=== PATIENT | female | born 1980 | race Caucasian/White ===

== ENCOUNTER 2020-07-28 16:17 | Outpatient (REF) | payer OTHER, SELFPAY | END 2020-07-28 16:18 | disposition home or self-care (01) | LOC: HO.LAB 16:17 | PROVIDERS: Visit Provider Internal Medicine | DX: Z20.828 Contact with and (suspected) exposure to other viral communicable diseases (principal) | CPT/HCPCS: C9803; U0003 ==

== ENCOUNTER 2022-10-05 15:58 | Emergency (ER) | payer OTHER, SELFPAY ==
--- NOTE | 2022-10-05 15:59 | ED_ITS ---
HPI - Skin/Abscess/Foreign Bdy General Chief complaint: Skin/Abscess/Foreign Body Stated complaint: rash on right arm Time Seen by Provider: 10/05/22 16:00 Source: patient Mode of arrival: ambulatory Limitations: no limitations History of Present Illness HPI narrative: 42 yo female healthy here itching rash to arms, right leg. Patient reports she initially noticed a lesion on her left arm. She was applying some topical hydrocortisone cream which seemed to help the rash. Then she developed lesions on her right lower leg and over her right upper arm. The rash is itchy. There is no associated pain, burning sensation. No flu-like symptoms. Brother lives on a farm and the patient has been staying with him. She is unaware of any tick bites. She does report that he has multiple animals on his farm. Related Data Previous Rx's Medication Instructions Recorded doxycycline monohydrate 100 mg 100 mg PO BID #20 caps 10/05/22 capsule hydrocortisone 2.5 % topical cream 1 appl topical TID PRN rash #30 10/05/22 grams hydroxyzine HCl 25 mg tablet 25 mg PO QID PRN itching #30 tabs 10/05/22 Allergies Allergy/AdvReac Type Severity Reaction Status Date / Time No Known Allergies Allergy Unverified 06/10/20 14:50 Review of Systems Review of Systems: Yes all other systems are reviewed and are negative Constitutional: Constitutional: Reports no additional constitutional complaints, Denies body ache(s), Denies chills, Denies fever(s), Denies headache(s) and Denies weakness Eyes: Eyes: Reports no additional eye complaints and Denies change in vision ENT: Reports system reviewed and no additional complaints, except as documented, Denies dizziness, Denies headache(s), Denies nasal congestion, Denies nasal discharge and Denies neck pain Cardiovascular: Cardiovascular: Reports no additional cardiovascular complaints, Denies chest pain, Denies leg edema and Denies dyspnea Respiratory: Respiratory: Reports no additional respiratory complaints, Denies cough and Denies dyspnea Gastrointestinal: Gastrointestinal: Reports no additional gastrointestinal complaints, Denies abdominal pain, Denies diarrhea, Denies nausea and Denies vomiting Genitourinary: Genitourinary: Reports no additional female genitourinary complaints and Denies urinary incontinence Musculoskeletal: Musculoskeletal: Reports no additional musculoskeletal complaints, Denies back pain, Denies arthralgias, Denies joint swelling, Denies neck pain, Denies numbness and Denies tingling Integumentary/Breasts: Skin/Breast: Reports system reviewed and no additional complaints, except as docu and Reports rash Neurologic: Reports system reviewed and no additional complaints, except as documented, Denies Abnormal speech present, Denies dizziness, Denies headach e(s), Denies numbness, Denies tingling and Denies weakness PMFSH Past Medical History Attestation statement: The following information was validated with the patient. Source: old records reviewed and nursing notes reviewed Social History Social History Advance Directives: No Advance Directives Information Provided: No Physical Exam Vital Signs: Vital Signs: Last Vital Signs Temp 98.0 F 10/05/22 16:00 Pulse 78 10/05/22 16:00 Resp 18 10/05/22 16:00 BP 135/91 H 10/05/22 16:00 Pulse Ox 98 10/05/22 16:00 O2 Del Method 10/05/22 16:00 BMI result Body Mass Index 34.0 Const: General: cooperative, healthy appearing, comfortable and no acute distress Orientation/consciousness: patient oriented x3 Limitations: no limitations HEENT: Head: Yes normal to inspection Ears: hearing grossly normal bilaterally General nose exam: Normal external nose present Face and sinus: Yes normal facial exam Mouth: Normal oral and palatal mucosa present Throat: Yes posterior oropharynx normal Eyes: General: appearance normal, both eyes and all related structures Pupils: Equal, round and reactive pupils present Neck: Neck: Yes normal visual inspection Chest: Chest palpation & inspection: normal inspection of the chest Resp: Effort & Inspection: normal respiratory effort Auscultation: clear to auscultation bilaterally Cardio: Rate: regular rate Rhythm: regular rhythm Peripheral pulses: Peripheral pulses 2+ throughout GI: Inspection: Yes normal to inspection Palpation (GI): Soft to palpation and nontender Auscultation: normal bowel sounds Back/Spine/Pelvis: Thoracic/Lumbar Spine: thoracic and lumbar spine normal to inspection Skin: General skin exam: no rashes or lesions noted Neuro: General: patient oriented x3, no focal motor deficits and normal sensation to monofilament Cranial nerves: Yes Equal, round and reactive pupils present Cognition (Neuro): normal cognition Speech: No Abnormal speech present Gait exam (Neuro): Normal gait present Motor exam (neuro): 5/5 motor strength present throughout Extrem: Other: Over the right upper arm there is a central area of crusting with surrounding erythema which extends from the lateral aspect of the arm to the medial aspect but is not quite circumferential. There is slight warmth. There is no induration or abscess palpated. Over the left forearm there are 2 lesions with similar appearance that are smaller. To the right medial ankle there is another lesion General: Yes normal to ins pection Medical Decision Making Medical Decision Making MDM Narrative: 42 yo female here with itching rash x 1 week. No new medications, detergents, foods, products the patient is aware of. No airway involvement. Does not appear urticarial on exam. The right upper extremity has a larger lesion with surrounding erythema which seems to be extending medially which may be some superimposed cellulitis. Likely atopic dermatitis. Patient however with recent visit to her brother's farm and could consider underlying tick-borne illnesses. No flu-like symptoms suggest. However due to being and make in the area will send panel for Lyme. Patient will be treated with doxycycline for presumed superimposed cellulitis, topical steroids and hydroxyzine for itching. Differential Diagnosis Differential Diagnoses: The differential diagnosis associated with the presentation includes Cellulitis, Lyme disease, atopic dermatitis Discharge Plan Discharge Clinical Impression: Cellulitis, Atopic dermatitis Patient Disposition: Home, Self-Care Instructions: Cellulitis (ED), Dermatitis (ED) Additional Instructions: We sent testing for Lyme disease. We will call you in several days if these results are positive. Take medications as prescribed Return for worsening symptoms Prescriptions: New hydrocortisone 2.5 % cream 1 appl topical TID PRN (Reason: rash) Qty: 30 0RF hydroxyzine HCl 25 mg tablet 25 mg PO QID PRN (Reason: itching) Qty: 30 0RF doxycycline monohydrate 100 mg capsule 100 mg PO BID Qty: 20 0RF Referrals: Physician,None [Primary Care Provider] -
[2022-10-05 16:00] VITALS: BP 135/91; PULSE 78; RESP 18; TEMP 36.7; O2SAT 98; BMI 34.0
[2022-10-09 17:08] LABS: Lyme Abs Screen <0.90 index
== END 2022-10-05 16:23 | disposition home or self-care (01) ==
PROVIDERS: Nurse Practitioner Family; Emergency Provider Student in an Organized Health Care Education/Training Program
DX: L03.113 Cellulitis of right upper limb (principal); L20.9 Atopic dermatitis, unspecified
CPT/HCPCS: 36415; 86617; 86618; 99282; 99283

== ENCOUNTER 2023-05-21 20:49 | Emergency (ER) | payer OTHER, SELFPAY ==
[2023-05-21 20:51] VITALS: BP 142/94; PULSE 76; RESP 18; TEMP 36.6; O2SAT 100; BMI 37.0
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
[2023-05-21] MEDS: Ketorolac Tromethamine 60 MG/2 ML VIAL IM (21:48)
[2023-05-21] MEDS: Cyclobenzaprine HCl 10 MG TABLET PO (21:48)
== END 2023-05-21 21:53 | disposition home or self-care (01) ==
PROVIDERS: Emergency Provider Emergency Medicine
DX: M79.10 Myalgia, unspecified site (principal); Z79.899 Other long term (current) drug therapy
CPT/HCPCS: 96372; 99283; 99284; J1885

== ENCOUNTER 2023-10-29 10:37 | Emergency (ER) | payer OTHER, SELFPAY ==
--- NOTE | ~2023-10-29 | XR_ITS ---
EXAMINATION: XR CHEST CLINICAL INFORMATION: Cough. COMPARISON: Report from chest radiograph dated 11/27/2008. TECHNIQUE: 2 views of the chest were obtained. FINDINGS: The lungs are clear. The cardiomediastinal silhouette is normal in size. There is no pleural effusion or pneumothorax. No acute osseous abnormality. XR/XR chest 2V IMPRESSION: No acute cardiopulmonary findings.
[2023-10-29 10:46] VITALS: BP 119/74; PULSE 82; RESP 18; TEMP 36.3; O2SAT 97; BMI 38.6
[2023-10-29 11:16] LABS: COVID-19 Test Negative (Negative); IDNOW Serial# 08D9AD1C; IDNOW Serial# 6674DD1D; Strep A Nucleic Acid Negative (Negative)
[2023-10-29 11:27] LABS: IDNOW Serial# 152EDE1D; Influenza A Negative (Negative); Influenza B2 Negative (Negative)
--- NOTE | 2023-10-29 11:44 | ED.URI ---
HPI - URI/Sore Throat General Chief Complaint: Upper Respiratory Symptoms Stated Complaint: Asthma Time Seen by Provider: 10/29/23 11:27 Source: patient, RN notes reviewed and old records reviewed Mode of arrival: ambulatory History of Present Illness HPI Narrative: 43 yo female with past medical history of asthma presents to ED c/o intermittently productive cough & shortness of breath / wheezing x7 days. States feels like her symptoms are w orsening.Admits her asthma has been controlled for years and does not currently take any medications for her asthma or have any inhalers and or PCP.. She She took her daughters albuterol around 5am this morning without relief. Reports chest discomfort with cough. Denies sore throat, ear pain, travel, fever MD elicited complaint: cough Pertinent past history: asthma Related Data Previous Rx's Medication Instructions Recorded doxycycline monohydrate 100 mg 100 mg PO BID #20 caps 10/05/22 capsule hydrocortisone 2.5 % topical cream 1 appl topical TID PRN rash #30 10/05/22 grams hydroxyzine HCl 25 mg tablet 25 mg PO QID PRN itching #30 tabs 10/05/22 cyclobenzaprine 10 mg tablet 10 mg PO TID PRN muscle spasm #10 05/21/23 tabs ibuprofen 600 mg tablet 600 mg PO Q6H PRN pain #14 tabs 05/21/23 albuterol sulfate 90 mcg/actuation 2 puff inhalation Q4-6H PRN 10/29/23 aerosol inhaler shortness of breath or wheezing #6.7 grams prednisone 20 mg tablet 40 mg (2 x 20 mg) PO DAILY 5 days 10/29/23 #10 tabs Allergies Allergy/AdvReac Type Severity Reaction Status Date / Time No Known Allergies Allergy Verified 10/29/23 10:50 Review of Systems Review of Systems: Constitutional: No Fever, No Chills ENT/Mouth: No Ear Pain, No Nasal Congestion, No Sinus Pain, No Hoarseness, No sore throat, No Rhinorrhea, No Swallowing Difficulty Cardiovascular: +Chest Pain w/cough, + SOB Respiratory: +Cough, + intermittent Sputum, + Wheezing Gastrointestinal: No Nausea, No Vomiting, No Diarrhea, No Constipation, No Abdominal pain Musculoskeletal: No joint pain, No Myalgias, No Joint Swelling Skin: No Skin Lesions, No rash Neuro: No Weakness Yes all other systems are reviewed and are negative Constitutional: Constitutional: Reports as per [facility] Past Medical History Attestation statement: The following information was validated with the patient. Source: old records reviewed Social History Social History Smoked in Last 30 Days: No Use of substances other than those prescribed or required for medical reasons: No Advance Directives: No Physical Exam Vital Signs: Vital Signs: Last Vital Signs Temp 97.4 F 10/29/23 10:46 Pulse 82 10/29/23 10:46 Resp 18 10/29/23 10:46 BP 119/74 10/29/23 10:46 Pulse Ox 97 10/29/23 10:46 O2 Del Method Room Air 10/29/23 10:46 BMI result Body Mass Index 38.6 Const: General: cooperative, healthy appearing and no acute distress Orientation/consciousness: patient oriented x3 Limitations: no limitations HEENT: Head: Yes normal to inspection and Yes atraumatic Ears: hearing grossly normal bilaterally and external ears normal General nose exam: Normal external nose present Face and sinus: Yes normal facial exam Mouth: Normal oral and palatal mucosa present Throat: Yes posterior oropharynx normal, Yes tonsils normal, Yes uvula midline, No peritonsillar mass, No uvula laterally displaced and No uvular edema Eyes: General: appearance normal, both eyes and all related structures EOM: EOMs intact bilaterally Neck: Neck: Yes normal visual inspection and Yes no meningeal signs Resp: Effort & Inspection: normal respiratory effort, able to speak in complete sentences and no respiratory distress Auscultation: clear to auscultation bilaterally, no crackles, no rhonchi and no wheezes Cardio: Rate: regular rate Heart sounds: S1 normal heart sound present and S2 normal heart sound present Skin: Rashes: no rashes Wounds: no wounds Neuro: General: patient oriented x3, tone normal and no meningeal signs Cranial nerves: Yes CN's II-XII intact bilaterally Gait exam (Neuro): Normal gait present Extrem: General: Yes normal to inspection Course Course Course Narrative: -1235--COVID/flu and rapid strep negative XR chest 2V IMPRESSION: No acute cardiopulmonary findings. Results discussed with patient including worrisome signs and symptoms and strict return precautions, and when to return to the emergency department. They verbalized understanding and feel safe for discharge at this time. Medical Decision Making Medical Decision Making MDM Narrative: 43 yo female with past medical history of asthma presents to ED c/o intermittently productive cough & shortness of breath / wheezing x7 days. On exam vital signs stable, NAD, nontoxic appearing, lungs CTA, talking in complete sentences, oropharynx WNL. Concern for viral illness vs asthma exacerbation vs possible pneumonia/bronchitis. Lower suspicion for ACS/PE or dissection. Unlikely DVT Plan: CXR, viral testing, supply albuterol inhaler > with shared decision-making due to symptoms x7 days will prescribe prednisone Differential Diagnosis Differential Diagnoses: The differential diagnosis associated with the presentation includes asthma exacerbation Viral illness COVID Pneumonia Lab Data [facility] Lab Attestation statement: I reviewed the patient's lab results. Labs: Lab Results 10/29/23 Range/Units 10:57 COVID-19 (HANANE) Negative (Negative) COVID-19 Clin Com See Note Influenza Type A ([facility]TE) Negative (Negative) Influenza Type B ([facility]TE) Negative (Negative) Influenza A & B Note See Note S. pyogenes GrpA [facility]ONTE Negative (Negative) Independent Interpretation I performed an independent interpretation of an: Plain X-Ray Radiology Impression Discussion of test interpretation with radiology: I have reviewed the radiologist's reading. External Record Review External record reviewed: Inpatient record, Office record, Outpatient record, Prior outpatient labs, Prior outpatient radiology, Primary care record and Outside ED record Tests considered The following testing was considered but not selected: As above Prescription Management I considered prescription management with: Antiviral and Antibiotic Chronic Conditions Patient?s care impacted by: Other (Asthma) Discharge Plan Discharge Clinical Impression: Upper respiratory infection, Bronchitis Patient Disposition: Home, Self-Care Instructions: Upper Respiratory Infection (ED) Additional Instructions: You have a virus. Please use albuterol inhaler at home in addition take prednisone as prescribed You need to establish care with a PCP No antibiotics are indicated at this time Make sure you are staying hydrated. Drink plenty of fluids. Rest Alternate Tylenol and Motrin at home as needed for body aches and fever Follow-up with your doctor. If symptoms persist or worsen return to the emergency department *If you are a child & not tolerating liquid or urinating for more than 6 hours, or fevers are uncontrolled with medications at home, return to the emergency department* Prescriptions: New prednisone 20 mg tablet 40 mg PO DAILY 5 Days Qty: 10 0RF albuterol sulfate 90 mcg/actuation HFA aerosol inhaler 2 puff inhalation Q4-6H PRN (Reason: shortness of breath or wheezing) Qty: 6.7 0RF No Action hydrocortisone 2.5 % cream 1 appl topical TID PRN (Reason: rash) Qty: 30 0RF hydroxyzine HCl 25 mg tablet 25 mg PO QID PRN (Reason: itching) Qty: 30 0RF doxycycline monohydrate 100 mg capsule 100 mg PO BID Qty: 20 0RF cyclobenzaprine 10 mg tablet 10 mg PO TID PRN (Reason: muscle spasm) Qty: 10 0RF ibuprofen 600 mg tablet 600 mg PO Q6H PRN (Reason: pain) Qty: 14 0RF Referrals: Physician,Unknown J [Primary Care Provider] - 3 days Stand Alone Forms: Work/School Release Interventions: ED Discharge Assessment Last Done: 10/29/23 13:02 Discharge Date/Time: 10/29/23 13:03
--- NOTE | 2023-10-29 12:56 | PC.NURSE ---
Pt is a &ox4 coming in with sob due to asthma. reports not having a pcp for script for asthma pump.
== END 2023-10-29 13:03 | disposition home or self-care (01) ==
PROVIDERS: Emergency Provider Emergency Medicine
DX: J06.9 Acute upper respiratory infection, unspecified (principal); J40 Bronchitis, not specified as acute or chronic; R05.9 Cough, unspecified; R06.02 Shortness of breath; R07.89 Other chest pain; Z11.52 Encounter for screening for COVID-19; Z79.899 Other long term (current) drug therapy
CPT/HCPCS: 71046; 87502; 87635; 87651; 99283

== ENCOUNTER 2025-03-24 17:10 | Emergency (ER) | payer OTHER, SELFPAY ==
[2025-03-24 17:19] VITALS: BP 129/87; PULSE 91; RESP 16; TEMP 36.8; O2SAT 94; BMI 37.8
--- NOTE | 2025-03-24 17:19 | ED.EAR ---
HPI - Ear Problem General Chief complaint: Ear Problems Stated complaint: L earache Time Seen by Provider: 03/24/25 17:22 Source: patient Mode of arrival: ambulatory Limitations: no limitations History of Present Illness ED Provider: Fiorella Solano NP HPI Narrative: patient is a 44 old female who presents emergency department for evaluation, complaining of pain to her left ear unrelieved with OTC analgesics. Admits to swimming while on vacation ear feels clogged but no active drainage from the ear. No fevers or chills. No pain posterior or anterior to the ear. Does not radiate into the jaw, no headache. No associated URI symptoms, sore throat. Related Data Previous Rx's ?Medication ?Instructions ?Recorded doxycycline monohydrate 100 mg 100 mg PO BID #20 caps 10/05/22 capsule hydrocortisone 2.5 % topical cream 1 appl topical TID PRN rash #30 10/05/22 grams hydroxyzine HCl 25 mg tablet 25 mg PO QID PRN itching #30 tabs 10/05/22 cyclobenzaprine 10 mg tablet 10 mg PO TID PRN muscle spasm #10 05/21/23 tabs ibuprofen 600 mg tablet 600 mg PO Q6H PRN pain #14 tabs 05/21/23 albuterol sulfate 90 mcg/actuation 2 puff inhalation Q4-6H PRN 10/29/23 aerosol inhaler shortness of breath or wheezing #6.7 grams prednisone 20 mg tablet 40 mg (2 x 20 mg) PO DAILY 5 days 10/29/23 #10 tabs amoxicillin 875 mg tablet 875 mg PO BID #14 tabs 03/24/25 Allergies Allergy/AdvReac Type Severity Reaction Status Date / Time No Known Allergies Allergy Verified 03/24/25 17:21 Review of Systems Review of Systems: Yes all other systems are reviewed and are negative PMFSH Past Medical History Attestation statement: The following information was validated with the patient. Source: old records reviewed Social History Social History Advance Directives: No Advance Directives Information Provided: No Do you have a plan to hurt others: No Plan Physical Exam Vital Signs: Vital Signs: Last Vital Signs Temp 98.3 F 03/24/25 17:22 Pulse 91 07/01/25 17:22 Resp 16 03/24/25 17:22 BP 129/87 03/24/25 17:22 Pulse Ox 94 03/24/25 17:22 O2 Del Method Room Air 03/24/25 17:22 BMI result Body Mass Index 37.8 Appearance: Alert.?Oriented to person, place and time. No acute distress.?Normal affect. Eyes: Pupils equal, round and reactive to light.? ENT: Pharynx normal.?? Right TM normal. Left TM erythematous and bulging with opacity. External canal is clear. No mastoid tenderness. Neck: Normal inspection.? Neck supple.?? No cervical adenopathy CVS: Heart sounds normal. Normal heart rate and rhythm.? Pulses normal.?? Respiratory: No respiratory distress.? Lung sounds clear to auscultation bilaterally?? Skin: Skin warm and dry.? Normal skin color.? ?? Extremities: No lower extremity edema.? Neuro: Moves all extremities spontaneously. Sensation intact bilaterally. Ambulates with normal steady gait. Medical Decision Making Medical Decision Making MDM Narrative: patient is a 44 year old female who presents emergency department for evaluation of left ear pain as per HPI, on examination has findings consistent with acute otitis media. No exam findings to suggest acute mastoiditis. TM is not ruptured remains intact. No evidence of otitis externa / malignant otitis externa. No associated URI symptoms or sore throat to suggest viral etiology. prescription for antibiotics sent to pharmacy, reviewed return precautions, outpatient follow-up with primary care doctor. Differential Diagnosis Differential Diagnoses: The differential diagnosis associated with the presentation includes ( See narrative above) External Record Review External record reviewed: Outpatient record Prescription Management I considered prescription management with: Pain Medication and Antibiotic Discharge Plan Discharge Clinical Impression: Acute otitis media Patient Disposition: Home, Self-Care Instructions: Ear Infection (ED) Additional Instructions: you were found to have an inner ear infection today prescription for antibiotic has been sent to your pharmacy please take this twice daily for 7 days. Follow-up with your primary care doctor. Avoid swimming, submerging her head under water, or inserting Q-tips into the ear as this may increase the risk of rupture to the ear drum You may return to emergency department any new or worsening symptoms or concerns Prescriptions: New amoxicillin 875 mg tablet 875 mg PO BID Qty: 14 0RF No Action hydrocortisone 2.5 % cream 1 appl topical TID PRN (Reason: rash) Qty: 30 0RF hydroxyzine HCl 25 mg tablet 25 mg PO QID PRN (Reason: itching) Qty: 30 0RF doxycycline monohydrate 100 mg capsule 100 mg PO BID Qty: 20 0RF cyclobenzaprine 10 mg tablet 10 mg PO TID PRN (Reason: muscle spasm) Qty: 10 0RF ibuprofen 600 mg tablet 600 mg PO Q6H PRN (Reason: pain) Qty: 14 0RF prednisone 20 mg tablet 40 mg PO DAILY 5 Days Qty: 10 0RF albuterol sulfate 90 mcg/actuation HFA aerosol inhaler 2 puff inhalation Q4-6H PRN (Reason: shortness of breath or wheezing) Qty: 6.7 0RF Referrals: Physician,None [Primary Care Provider, Medical] Interventions: ED Discharge Assessment Last Done: 03/24/25 17:22 Discharge Date/Time: 03/24/25 17:26 Print Language: [place]i
[2025-03-24 17:22] VITALS: BP 129/87; PULSE 91; RESP 16; TEMP 36.8; O2SAT 94
== END 2025-03-24 17:26 | disposition home or self-care (01) ==
LOC: HO.ED 17:26
PROVIDERS: Emergency Provider Emergency Medicine
DX: H66.92 Otitis media, unspecified, left ear (principal); H92.02 Otalgia, left ear
CPT/HCPCS: 99282; 99283